=== PATIENT | female | born 2005 | race Caucasian/White ===

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

== ENCOUNTER → 2024-06-22 12:53 | Outpatient (REF) | payer OTHER, SELFPAY | LOC: HWRAD 12:53 | PROVIDERS: ATTENDING PHYSICIAN Advanced Practice Midwife; FAMILY PHYSICIAN Family Medicine | DX: R10.9 Unspecified abdominal pain (principal) | CPT/HCPCS: 76830; 76856 ==

== ENCOUNTER → 2024-07-24 13:32 | Outpatient (REF) | payer OTHER, SELFPAY | LOC: PNTC 13:32 | PROVIDERS: ATTENDING PHYSICIAN Nurse Practitioner Family | DX: O36.80X0 Pregnancy with inconclusive fetal viability, not applicable or unspecified (principal) | CPT/HCPCS: 76801; 76817 ==

== ENCOUNTER → 2024-09-04 13:25 | Outpatient (REF) | payer OTHER, SELFPAY | LOC: PNTC 13:25 | PROVIDERS: ATTENDING PHYSICIAN Obstetrics & Gynecology | DX: Z36.0 Encounter for antenatal screening for chromosomal anomalies (principal); Z36.82 Encounter for antenatal screening for nuchal translucency | CPT/HCPCS: 76801; 76813 ==

== ENCOUNTER → 2024-10-24 13:20 | Outpatient (REF) | payer BC, SELFPAY | LOC: PNTC 13:20 | PROVIDERS: ATTENDING PHYSICIAN Obstetrics & Gynecology | DX: O99.320 Drug use complicating pregnancy, unspecified trimester (principal) | CPT/HCPCS: 76811; 76817 ==

== ENCOUNTER → 2024-12-28 11:05 | Outpatient (REF) | payer OTHER, SELFPAY | LOC: PNTC 11:05 | PROVIDERS: ATTENDING PHYSICIAN Obstetrics & Gynecology | DX: Z34.83 Encounter for supervision of other normal pregnancy, third trimester (principal) | CPT/HCPCS: 36415; 86850; 86900; 86901; 96372; J2790 ==

== ENCOUNTER → 2025-01-18 12:13 | Outpatient (REF) | payer OTHER, SELFPAY | LOC: PNTC 12:13 | PROVIDERS: ATTENDING PHYSICIAN Obstetrics & Gynecology | DX: O26.849 Uterine size-date discrepancy, unspecified trimester (principal) | CPT/HCPCS: 76816 ==

== ENCOUNTER 2025-01-28 09:27 | Emergency (ER) | payer OTHER, SELFPAY ==
[2025-01-28 09:29] VITALS: BP 127/76
--- NOTE | 2025-01-28 10:00 | ED.GENMED ---
History of Present Illness
<Gerson Bruce PA-C - Last Filed: 01/28/25 14:37>
General
Chief Complaint: Chest Pain
Source: patient
Time Seen by Provider: 01/28/25 09:46
History of Present Illness
History of Present Illness:
19-year-old female G2, P1, currently 34 weeks presenting to the ER at the request of her OB team for evaluation of right sided chest pain that started last night while she was putting her other daughter to sleep noting the pain to be along
the right anterior portion of the chest just lateral to the sternum, worse with swallowing but states no pain in her throat or sore throat, may be slightly relieved by standing but overall minimally reproducible. There are no other associated
symptoms including cough, pleurisy, hemoptysis, lower extremity edema, exertional dyspnea, orthopnea, diaphoresis. Denies any other concerns. Notes her last was without complication. Patient is also denying any related
concerns including abdominal pain, contractions, vaginal bleeding, fluid leaking or discharge
Past History
<Gerson Bruce PA-C - Last Filed: 01/28/25 14:37>
Past History
ED Past Medical History: Psychiatric
ED Past Surgical History: Tonsilectomy and Other
Social History
Tobacco: Non-smoker
Alcohol: None
Drug: None
Personal:
Living: with family
Review of Systems
<Gerson Bruce PA-C - Last Filed: 01/28/25 14:37>
Review of Systems
All Other Systems: ROS reviewed and negative except as documented in HPI and ROS
Phy Exam
<Gerson Bruce PA-C - Last Filed: 01/28/25 14:37>
Physical Exam
Physical Exam:
GENERAL: Alert , in no apparent distress
EYE: clear conjunctiva b/l
HEAD: NCAT
ENT: mmm.
CARDIAC: Heart rate around 108 bpm, normal rhythm
LUNGS: Clear breath sounds bilaterally, no acute respiratory distress, no wheezes/rales/rhonchi
ABDOMEN: Soft, without focal tenderness, no r/g, no cvat, gravid uterus
NEUROLOGICAL: Alert and oriented
SKIN: Warm and dry, skin intact.
MUSCULOSKELETAL: No edema, well perfused.
PSYCH: Normal and appropriate interaction.
Scores
<Gerson Bruce PA-C - Last Filed: 01/28/25 14:37>
Heart Failure Risk
Heart Failure Risk Score: Not Applicable
Heart Score for Chest Pain Patients
STEMI patient?: No
History: Slightly or Non-Suspicious
ECG: Normal
Age: </= 45 years
Risk Factors: No Risk Factors
Troponin: </= Normal Limit
Heart Score for Chest Pain Patients: 0
Heart Score Risk: 2.5% MACE over next 6 weeks
Withdrawal Assessment of Alcohol
Withdrawal Assessment Completed?: Not applicable
<Monty Pathak DO - Last Filed: 01/28/25 12:12>
Heart Score for Chest Pain Patients
Heart Score for Chest Pain Patients: 0
Heart Score Risk: 2.5% MACE over next 6 weeks
Course
<Gerson Bruce PA-C - Last Filed: 01/28/25 14:37>
Orders/Labs/Results
Orders:
Orders
01/28/25 09:32
EKG [Electrocardiogram (*1)] Urgent
Reason for Study: Chest Pain
EKG- Treatment ONCE
01/28/25 10:15
Basic Metabolic Panel Urgent
Complete Blood Count/With Diff Urgent
D-Dimer Urgent
Troponin I Urgent
01/28/25 10:47
CT Chest PE Study Urgent
Comment:
Reason For Exam: chest pain, 34 weeks preg
Abnormal Lab Results
01/28/25
10:15
Absolute Neuts (auto) 7.8 H 10^3/uL
(1.4-6.5)
Neutrophils % 77.9 H %
(42.2-75.2)
Lymphocytes % 13.9 L %
(20.5-51.1)
D-Dimer 0.96 H ug/mlFEU
(0.00-0.50)
Chloride 109 H mmol/L
(98-107)
BUN 5 L mg/dl
(7-17)
Creatinine 0.5 L mg/dL
(0.6-1.0)
Glucose 101 H mg/dl
(70-99)
01/28/25 10:15
01/28/25 10:15
Vital Signs
Initial and Last Documented VS:
Initial Vital Signs
Temp Pulse Resp BP Pulse Ox
97.7 F 94 18 127/76 98
01/28/25 09:29 01/28/25 09:29 01/28/25 09:29 01/28/25 09:29 01/28/25 09:29
Last Documented Vital Signs
Temp Pulse Resp BP Pulse Ox
97.7 F 90 17 97/69 97
01/28/25 09:29 01/28/25 13:35 01/28/25 13:35 01/28/25 13:00 01/28/25 13:15
<Monty Pathak, - Last Filed: 01/28/25 12:12>
Orders/Labs/Results
Orders:
Orders
01/28/25 09:32
EKG [Electrocardiogram (*1)] Urgent
Reason for Study: Chest Pain
EKG- Treatment ONCE
01/28/25 10:15
Basic Metabolic Panel Urgent
Complete Blood Count/With Diff Urgent
D-Dimer Urgent
Troponin I Urgent
01/28/25 10:47
CT Chest PE Study Urgent
Comment:
Reason For Exam: chest pain, 34 weeks preg
Abnormal Lab Results
01/28/25
10:15
Absolute Neuts (auto) 7.8 H 10^3/uL
(1.4-6.5)
Neutrophils % 77.9 H %
(42.2-75.2)
Lymphocytes % 13.9 L %
(20.5-51.1)
D-Dimer 0.96 H ug/mlFEU
(0.00-0.50)
Chloride 109 H mmol/L
(98-107)
BUN 5 L mg/dl
(7-17)
Creatinine 0.5 L mg/dL
(0.6-1.0)
Glucose 101 H mg/dl
(70-99)
01/28/25 10:15
01/28/25 10:15
Vital Signs
Initial and Last Documented VS:
Initial Vital Signs
Temp Pulse Resp BP Pulse Ox
97.7 F 94 18 127/76 98
01/28/25 09:29 01/28/25 09:29 01/28/25 09:29 01/28/25 09:29 01/28/25 09:29
Last Documented Vital Signs
Temp Pulse Resp BP Pulse Ox
97.7 F 90 17 97/69 97
01/28/25 09:29 01/28/25 13:35 01/28/25 13:35 01/28/25 13:00 01/28/25 13:15
<Gerson Bruce PA-C - Last Filed: 01/28/25 14:37>
MDM/Problems Addressed
Differential Diagnosis Includes:
Costochondritis
GERD
PE
Contractions
Anemia
MDM/Problems Addressed:
19-year-old female presenting to the ER for evaluation of chest pain and request of her OB. Currently 34 weeks . Arrives mildly tachycardic but would expect her heart rate to be around this level given her state at 34 weeks. She
is without fevers or infectious symptoms, denies any recent illnesses. Pain seems to be nonreproducible. Will check labs including a D-dimer. EKG done in triage is nonischemic. Discussed risk versus benefit of CT imaging. Patient in agreement
with workup plan. OB is aware that patient is here in the ER and will arrange for NST upon completion of work up
<Gerson Bruce PA-C - Last Filed: 01/28/25 14:37>
*Radiology
Radiology exam reviewed: radiology read reviewed
*Pulse Oximetry
SaO2: 98
Oxygen Mode of Delivery: Room air
Patient hypoxic: no
*EKG
Heart Rate: 114
Rate: tachycardiac
Rhythm: sinus
[place]: normal axis
Ischemia: no ischemia
*Tier In Interpretation
Rate: tachycardiac
Heart Rate: 108
Rhythm: sinus
*Critical Care Note
Total Time (30-74mins, 75-104mins- exclusive of procedures): Not Applicable
<Gerson Bruce PA-C - Last Filed: 01/28/25 14:37>
Patient Management
Discussion with other providers: Machine Learning Intern
Escalation/DeEscalation of care consider admission/obs:
Patient CT of the chest is negative for PE. Radiology was concern for a possible right mid to upper lung pneumonia however patient is without any fevers or infectious symptoms that would be consistent with pneumonia. I discussed this finding with
the patient at this time we will defer antibiotic treatment, more likely the findings represented atelectasis given her current state. Patient completed NST without any complications seen. Case was discussed with PALLIATIVE CARE NURSE who states okay
for patient to be discharged home and follow-up as scheduled as an outpatient. Patient stable for discharge.
ED Attending Note
<Gerson Bruce PA-C - Last Filed: 01/28/25 14:37>
-
Portions of this chart may have been created with voice recognition software.� Occasional wrong word or��sound alike� substitutions may have occurred due to the inherent limitations of voice recognition software.
<Monty Pathak DO - Last Filed: 01/28/25 12:12>
ED Attending Note
Patient seen and examined by attending physician: Yes
I performed the substantive portion of visit, reviewed & personally made and approve the management plan that is documented in note by myself or CHANDRIKA.: Yes
Discharge Plan
Departure
Patient Disposition: Home (Routine Discharge)
Date of Disposition: 01/28/25
Time of Disposition: 14:31
Patient with high blood pressure during this ER visit?: No
Discharge Problem:
Chest pain
Instructions: Chest Pain That Is Not Caused by the Heart (DC)
Prescriptions:
No Action
bupropion HCl 100 mg Tablet
300 mg PO DAILY
escitalopram oxalate [Lexapro] 10 mg Tablet
10 mg PO DAILY
Tablet
1 tab PO DAILY
Referrals:
Gorge Nino DO [Family Provider, Family Practice]
Interventions
Interventions:
*Risk Screen - Suicide Last Done: 01/28/25 09:32
*General Assessment Last Done: 01/28/25 09:32
*Neglect/Abuse Screening Last Done: 01/28/25 09:32
*ED COVID-19 Vaccine History Last Done: 01/28/25 09:32
ED- Cardiac Assessment Last Done: 01/28/25 10:24
Discharge Date and Time
Print Language: IRISH
[2025-01-28 10:24] VITALS: BP 99/63
[2025-01-28 10:30] LABS: Hematocrit 37.2 % (37.0-47.0); Hemoglobin 12.9 g/dL (12.0-16.0); Mean Corp Hgb Conc. 34.7 g/dL (33.0-37.0); Mean Corpuscular Volume 84.7 fL (81.0-99.0); Nucleated Red Blood Cells % 0 %; Platelet Count 246 10^3/uL (130-400); Red Cell Dist. Width 12.0 % (11.5-14.5)
[2025-01-28 10:41] LABS: D-Dimer 0.96 ug/mlFEU (0.00-0.50)
[2025-01-28 10:54] LABS: Blood Urea Nitrogen 5 mg/dl (7-17); Calcium 9.0 mg/dl (8.4-10.2); Carbon Dioxide 24 mmol/L (22-30); Chloride 109 mmol/L (98-107); Glucose 101 mg/dl (70-99); Potassium 3.5 mmol/L (3.5-5.1); Sodium 136 mmol/L (135-145); eGFR > 60.00
[2025-01-28 11:00] VITALS: BP 115/61
[2025-01-28 11:04] LABS: Troponin I < 0.012 ng/ml
[2025-01-28 12:00] VITALS: BP 101/68
--- NOTE | 2025-01-28 12:21 | PTCARENOTE ---
called down, verbal order for nst, pt here for chest pain. Pt reports activity, NST reactive.
[2025-01-28 13:00] VITALS: BP 97/69
== END 2025-01-28 15:06 | disposition home or self-care (01) ==
LOC: EMR 09:27
PROVIDERS: Physician Assistant Medical; EMERGENCY PHYSICIAN Emergency Medicine; FAMILY PHYSICIAN Family Medicine
DX: O99.891 Other specified diseases and conditions complicating pregnancy (principal); R07.9 Chest pain, unspecified; Z3A.34 34 weeks gestation of pregnancy
CPT/HCPCS: 99284; 71275; 80048; 84484; 85025; 85379; 93005; Q9967

== ENCOUNTER 2025-03-04 11:58 | Inpatient (IN) | payer OTHER, SELFPAY ==
[2025-03-04] MEDS: LR 1000 IV ×4 (12:00→22:37)
[2025-03-04 12:03] VITALS: BMI 30.2
[2025-03-04] MEDS: TYLENOL 1000 MG PO ×2 (12:56→19:02)
[2025-03-04 12:59] LABS: Hematocrit 38.8 % (37.0-47.0); Hemoglobin 13.5 g/dL (12.0-16.0); Mean Corp Hgb Conc. 34.8 g/dL (33.0-37.0); Mean Corpuscular Volume 85.7 fL (81.0-99.0); Nucleated Red Blood Cells % 0 %; Platelet Count 254 10^3/uL (130-400); Red Cell Dist. Width 11.9 % (11.5-14.5)
[2025-03-04] MEDS: PENICILLIN 110 UNITS IV (13:54)
[2025-03-04] MEDS: PENICILLIN 55 UNITS IV ×2 (17:05→20:57)
[2025-03-04] MEDS: SUBLIMAZE 100 MCG EPIDURAL (17:46)
[2025-03-04] MEDS: FENTANYL/BUPIVACAINE 100 EPIDURAL (17:46)
[2025-03-04] MEDS: TUMS CHEWABLE TABLET 400 MG PO (22:21)
[2025-03-05] MEDS: PENICILLIN 55 UNITS IV (01:34)
[2025-03-05] MEDS: METHERGINE INJECTION 0.2 MG IM (02:30)
[2025-03-05] MEDS: TRANEXAMIC ACID 100 IV (02:36)
[2025-03-05] MEDS: CYTOTEC 800 MCG RECTAL (02:36)
[2025-03-05] MEDS: PITOCIN 30 UNITS/NSS 500 ML IV (03:40)
[2025-03-05] MEDS: MOTRIN 600 MG PO ×2 (05:05→16:12)
[2025-03-05] MEDS: TYLENOL 650 MG PO ×2 (06:27→16:12)
[2025-03-05] MEDS: PRENATAL PLUS 1 TABLET PO (08:19)
[2025-03-05] MEDS: WELLBUTRIN XL (24 hour extended release) 300 MG PO (08:19)
[2025-03-05] MEDS: COLACE 100 MG PO ×2 (08:19→19:57)
[2025-03-05] MEDS: LEXAPRO 10 MG PO (08:27)
[2025-03-06] MEDS: TYLENOL 650 MG PO ×2 (00:21→11:18)
[2025-03-06] MEDS: MOTRIN 600 MG PO ×3 (00:21→20:36)
[2025-03-06 04:37] LABS: Hematocrit 35.6 % (37.0-47.0); Hemoglobin 12.3 g/dL (12.0-16.0)
[2025-03-06] MEDS: PRENATAL PLUS 1 TABLET PO (07:51)
[2025-03-06] MEDS: LEXAPRO 10 MG PO (07:51)
[2025-03-06] MEDS: COLACE 100 MG PO ×2 (07:51→20:36)
[2025-03-06] MEDS: WELLBUTRIN XL (24 hour extended release) 300 MG PO (07:52)
[2025-03-06] MEDS: RHOGAM 300 MCG IM (11:03)
[2025-03-06 13:33] LABS: Syphilis/T. pallidum Ab Reflex Negative (Negative)
--- NOTE | 2025-03-07 02:30 | DOWNTIME ---
There was a [place] [employer] Client Teletype Installer Downtime on 03/07/2025 from 0100 to 03/07/2025 at 0215. Downtime documentation of patient's care, including medication administrations, has been reconciled in the electronic record per guidelines. Refer to the
patient's paper chart under the miscellaneous tab to see printed paper medication records and downtime forms.
[2025-03-07] MEDS: LEXAPRO 10 MG PO (08:34)
[2025-03-07] MEDS: WELLBUTRIN XL (24 hour extended release) 300 MG PO (08:34)
[2025-03-07] MEDS: PRENATAL PLUS 1 TABLET PO (08:35)
[2025-03-07] MEDS: COLACE 100 MG PO (08:36)
== END 2025-03-07 11:45 | disposition home or self-care (01) | DRG 768 ==
LOC: LDRP 11:58
PROVIDERS: ADMITTING PHYSICIAN Student in an Organized Health Care Education/Training Program
PROC: 10907ZC Drainage of Amniotic Fluid, Therapeutic from Products of Conception, Via Natural or Artificial Opening (ICD-10-PCS; 2025-03-05)
PROC: 0W3R7ZZ Control Bleeding in Genitourinary Tract, Via Natural or Artificial Opening (ICD-10-PCS; 2025-03-05)
PROC: 10E0XZZ Delivery of Products of Conception, External Approach (ICD-10-PCS; 2025-03-05)
PROC: 3E0334Z Introduction of Serum, Toxoid and Vaccine into Peripheral Vein, Percutaneous Approach (ICD-10-PCS; 2025-03-06)
DX: O99.824 Streptococcus B carrier state complicating childbirth (principal); Z37.0 Single live birth; O26.893 Other specified pregnancy related conditions, third trimester; Z67.21 Type B blood, Rh negative; Z3A.38 38 weeks gestation of pregnancy; O99.344 Other mental disorders complicating childbirth; F41.9 Anxiety disorder, unspecified; F32.A Depression, unspecified; O69.1XX0 Labor and delivery complicated by cord around neck, with compression, not applicable or unspecified
CPT/HCPCS: 85014; 85018; 85025; 85461; 86780; 86850; 86870; 86900; 86901; J2790